=== PATIENT | male | born 1985 | race Caucasian/White ===

== ENCOUNTER 2021-04-18 08:26 | Emergency (ER) | payer OTHER, MEDICAID ==
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
[2021-04-18] MEDS ORDERED: Iopamidol 612 MG/ML 100 ML Bottle IV ONE (10:29)
[2021-04-18] MEDS ORDERED: Sodium Chloride 0.9% 75 ML IV SCH (10:30)
[2021-04-18] MEDS ORDERED: Diphtheria,Pertussis(Acell),Tetanus Vaccine 0.5 ML Syringe IM ONE (11:08)
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
[2021-04-18] MEDS ORDERED: Bacitracin Oint 1 GM U/D Packet TOP ONE (11:56)
== END 2021-04-18 12:27 | disposition home or self-care (01) ==
LOC: JP.ED 08:26
DX: S20.211A Contusion of right front wall of thorax, initial encounter (principal); S00.01XA Abrasion of scalp, initial encounter; S40.212A Abrasion of left shoulder, initial encounter; S40.211A Abrasion of right shoulder, initial encounter; Z91.018 Allergy to other foods; Z23 Encounter for immunization; V27.4XXA Motorcycle driver injured in collision with fixed or stationary object in traffic accident, initial encounter
CPT/HCPCS: 71260; 90471; 90715; 99284; Q9967